=== PATIENT | male | born 1990 | race African-American/Black ===

== ENCOUNTER 2016-11-01 23:46 | Emergency (ER) | payer SELFPAY ==
--- NOTE | 2016-11-01 23:53 | EDPHY ---
H & P HPI/ROS: HPI CHIEF COMPLAINT: Alcohol Intoxication HISTORY OF PRESENT ILLNESS: Patient 25-year-old male, homeless, transient, presents emergency room by EMS after please make contact with him on the side of the road. He admits to drinking large amount of alcohol this evening. States he had multiple beers and shots of liquor. He was not answering their questions per EMS and so they brought him here for evaluation. Upon arrival here he is answering questions he is, cooperative. He is coherent. He is stable gait. No ataxia. It is noted he has a warrant for rest and police would like to take him to [facility]. He has no medical complaints. Patient denies any other, ingestions. Past Medical History: Denies medical history Past Surgical History: denies surgical history Social History: admits drinking large amount of alcohol this evening, homeless, transient Family History: noncontributory ROS REVIEW OF SYSTEMS: A comprehensive 10 point review of systems is otherwise negative aside from elements mentioned in the history of present illness. Exam Constitutional Intoxicated, triage nursing summary reviewed, vital signs reviewed, Sleepy, smells of alcohol Eyes normal conjunctivae and sclera, horizontal beating nystagmus consistent acute alcohol intoxication, otherwise pupils equal and react to light HENT normal inspection, atraumatic, moist mucus membranes, no epistaxis, neck supple/ no meningismus, no raccoon eyes. Respiratory clear to auscultation bilaterally, normal breath sounds, no respiratory distress, no wheezing. Cardiovascular rate normal, regular rhythm, no murmur, no edema, distal pulses normal. Gastrointestinal soft, non-tender, no rebound, no guarding, normal bowel sounds, no distension, no pulsatile mass. Genitourinary no CVA tenderness. Musculoskeletal no midline vertebral tenderness, full range of motion, no calf swelling, no tenderness of extremities, no meningismus, good pulses, neurovascularly intact. Skin pink, warm, & dry, no rash, skin atraumatic. Neurologic sleepy, intoxicated with alcohol,, alert and oriented x 3, AAOx3, moves all 4 extremities equally, motor intact, sensory intact, CN II-XII intact , , normal vision, normal speech. Psychiatric normal mood/affect. Heme/Lymph/Immune no lymphadenopathy. Differential Diagnosis: Includes but is not limited to in a particular order acute alcohol intoxication, alcohol abuse, dehydration, electrolyte abnormality , nausea vomiting from acute alcohol intoxication Medical Decision Making: plan for this patient ambulated well with no ataxia. Vital signs are stable. Admits to drinking alcohol this evening. He safe for discharge to [facility] with [facility]. Source: Patient, Police, EMS Allergies/Adverse Reactions: No Known Allergies Allergy (Unverified 11/01/16 23:51) Home Medications: Medication Instructions Recorded NK [No Known Home Meds] 11/01/16 Departure - Departure Disposition: Home, Routine, Self-Care Clinical Impression: Alcoholic intoxication Qualifiers: Complication of substance-induced condition: uncomplicated Qualified Code(s): F10.920 - Alcohol use, unspecified with intoxication, uncomplicated Condition: Good Instructions: Alcohol Intoxication (ED) Additional Instructions: 1. Medically cleared for [facility]. Referrals: NONE *PRIMARY CARE P,. [Primary Care Provider] - As per Instructions
[2016-11-01 23:58] VITALS: BP 121/78; PULSE 79; RESP 16; TEMP 98.6; O2SAT 98
== END 2016-11-01 23:59 | disposition home or self-care (01) ==
DX: F10.120 Alcohol abuse with intoxication, uncomplicated (principal)